=== PATIENT | female | born 1970 ===

== ENCOUNTER 2023-12-11 14:30 | Emergency (ER) | payer OTHER ==
[2023-12-11] MEDS ORDERED: SODIUM CHLORIDE 0.9% 500 ML BAG ONE (16:30)
[2023-12-11] MEDS ORDERED: SODIUM CHLORIDE 0.9% 1,000 ML BAG ONE (16:30)
[2023-12-11] MEDS ORDERED: LORazepam 1 MG TAB ONE (18:36)
[2023-12-11] MEDS ORDERED: LORazepam 2 MG/ML INJ ONE (18:38)
--- NOTE | 2024-01-15 14:31 | XR ---
EXAMINATION TYPE: XR chest 2V DATE OF EXAM: 01/15/2024 COMPARISON: None INDICATION: Tachycardia dizziness TECHNIQUE: Frontal and lateral views of the chest are obtained. FINDINGS: The heart size is normal. The pulmonary vasculature is normal. The lungs are clear. IMPRESSION: 1. No acute pulmonary process. [facility], , 01/15/2024 2:29 PM
== END 2023-12-11 20:52 | disposition home or self-care (01) ==
LOC: EC 14:30
CPT/HCPCS: 71046; 93005; 96361; 96374; 99285